=== PATIENT | male | born 1975 | race Hispanic/Latino ===

== ENCOUNTER → 2025-01-06 | Outpatient (CLI) | payer SELFPAY ==
--- NOTE | 2025-01-06 19:16 | CT_ITS ---
PROCEDURE: SINUS/FACIAL BONE 01/07/2025 REASON FOR EXAM: CHRONIC SINUSITIS TECHNIQUE: SINUS/FACIAL BONE Coronal and Sagittal reconstruction series were provided. One or more dose reduction techniques were used (e.g., Automated exposure control, adjustment of the mA and/or kV according to patient size, use of iterative reconstruction technique). RADIATION DOSE SUMMARY: CTDlvol: mGy DLP: mGycm COMPARISON: none FINDINGS: Focal and lamellar mucosal thickening of the maxillary antra. Clear sphenoid and frontal sinuses as well as the and ethmoidal air cells. Uncinate Processes: No deviation or bulla formation O-M UNIT: patent. Sphenoethmoidal recesses. Patent Fovea Ethmoidalis: Normal position. Fovea ethmoidalis and cribriform plate are not low lying Nasal Septum: bowed convex to the left side with bony spur seen along its convex side. Turbinates: Thickening of the mucosa covering the right inferior turbinate. Nasopharynx: no obvious abnormalities. Mastoid air cells and middle ear clefts: Unremarkable Facial Bones and mandible: Unremarkable. CT/Sinus/Facial Bone IMPRESSION: Mild bilateral maxillary sinusitis. bowed convex to the left side with bony spur seen along its convex side. Reading [facility]
== END | disposition home or self-care (01) ==
PROVIDERS: Visit Provider Otolaryngology
DX: J32.9 Chronic sinusitis, unspecified (principal)
CPT/HCPCS: 70486